=== PATIENT | female | born 1985 | race Caucasian/White ===

== ENCOUNTER 2021-02-11 10:00 | Day surgery (SDC) | payer OTHER ==
[~2021-02-11 10:00] MED LIST: CLONAZEPAM1 M1
== END 2021-02-11 19:35 | disposition home or self-care (01) ==
LOC: CIR.AMB 10:00
PROVIDERS: ATTEND Obstetrics & Gynecology
DX: N84.0 Polyp of corpus uteri (principal); Z20.822 Contact with and (suspected) exposure to COVID-19